=== PATIENT | female | born 1985 | race Caucasian/White ===

== ENCOUNTER 2021-05-30 08:58 | Outpatient (CLI) | payer BC ==
[2021-05-30 18:25] LABS: SARS-CoV-2 PCR by NAA Not Detected (NotDetected)
== END 2021-05-30 08:59 | disposition home or self-care (01) ==
LOC: CSHLAB 08:58
PROVIDERS: ATTEND Obstetrics & Gynecology
DX: Z20.822 Contact with and (suspected) exposure to COVID-19 (principal)
CPT/HCPCS: U0003; U0005

== ENCOUNTER 2021-06-03 14:29 | Inpatient (IN) | payer BC ==
[~2021-06-03 14:29] MED LIST: Bupivacaine 0.25% HCL 30 ML VIAL ONE
[2021-06-03] MEDS ORDERED: Misoprostol 200 MCG TAB PR PRN (20:21)
[2021-06-03] MEDS ORDERED: Acetaminophen 500 MG TAB PO PRN (20:21)
[2021-06-03] MEDS ORDERED: Lidocaine 1% (PF) 30 ML VIAL SC PRN (20:21)
[2021-06-03] MEDS ORDERED: Carboprost 250 MCG/ML AMP IM PRN (20:21)
[2021-06-03] MEDS ORDERED: Diphenoxylate HCl/Atropine Tablet PO PRN ×2 (20:21)
[2021-06-03] MEDS ORDERED: Zolpidem Tartrate 5 MG TAB PO PRN (20:21)
[2021-06-03] MEDS ORDERED: Fentanyl 100 MCG/2 ML VIAL SLOW IVP PRN (20:21)
[2021-06-03] MEDS ORDERED: Ibuprofen 800 MG TAB PO PRN (20:21)
[2021-06-03] MEDS ORDERED: hydrALAZINE 20 MG/ML VIAL SLOW IVP PRN (20:21)
[2021-06-03] MEDS ORDERED: Promethazine HCl 25 MG/ML VIAL IM PRN (20:21)
[2021-06-03] MEDS ORDERED: HYDROcodone/Acetaminophen 5/325 mg Tablet PO PRN (20:21)
[2021-06-03] MEDS ORDERED: Ondansetron PF 4 MG/2 ML Vial IVP PRN (20:21)
[2021-06-03] MEDS ORDERED: Lactated Ringer's 1,000 ML IV SCH (20:30)
[2021-06-03] MEDS ORDERED: NS w/ Oxytocin 30 units 500 ML IV SCH ×2 (20:30)
[2021-06-03 21:00] VITALS: BMI 29.9
[2021-06-03 21:46] LABS: Mean Corpuscular HGB CONC 33.8 g/dL (32.0-36.0); Mean Corpuscular Hemoglobin 30.5 pg (27.0-33.0); Mean Corpuscular Volume 90.3 fl (81.6-98.3); Mean Platelet Volume 10.7 fl (7.4-10.4); Platelet Count 247 10x3/uL (150-450); RBC Distribution Width 15.8 % (11.5-14.5); Red Blood Cell (RBC) Count 3.93 10x6/uL (3.90-5.03); White Blood Cell (WBC) Count 13.3 10x3/uL (3.5-10.5)
[2021-06-03] MEDS: Misoprostol 100 MCG TAB VAG SCH (21:50)
[2021-06-03 22:18] LABS: Hep B Surf Ag Non-Reactive S/CO (NonReactive); Syphilis Antibody Nonreactive (Nonreactive); Syphilis Antibody Index 0.03 S/CO (<1.00 Non-Reactive)
[2021-06-04] MEDS: Misoprostol 100 MCG TAB VAG SCH ×2 (00:54→23:09)
[2021-06-04] MEDS: Butorphanol Tartrate 1 MG/ML VIAL SLOW IVP PRN ×2 (04:32→06:21)
[2021-06-04] MEDS ORDERED: Butorphanol Tartrate 1 MG/ML VIAL ONE (04:34)
[2021-06-04] MEDS ORDERED: diphenhydrAMINE 50 MG/ML VIAL IVP PRN (07:22)
[2021-06-04] MEDS ORDERED: Ondansetron PF 4 MG/2 ML Vial IVP PRN (07:22)
[2021-06-04] MEDS ORDERED: Lactated Ringer's 500 ML IV PRN (07:22)
[2021-06-04] MEDS ORDERED: Hydrocerin (Eucerin) Cream 120 gm Jar TOP PRN (07:22)
[2021-06-04] MEDS ORDERED: Acetaminophen 325 MG TAB PO PRN (07:22)
[2021-06-04] MEDS ORDERED: Fentanyl 2 mcg/Bup 0.1% Cadd 100 ML ONE (07:22)
[2021-06-04] MEDS ORDERED: Naloxone HCl 0.4 mg/ml Vial IVP PRN ×2 (07:22)
[2021-06-04] MEDS ORDERED: ePHEDrine Sulfate 50 MG/10 ML VIAL SLOW IVP PRN (07:22)
[2021-06-04] MEDS ORDERED: Promethazine HCl 25 MG/ML VIAL IM PRN (07:22)
[2021-06-04] MEDS ORDERED: Communication Order-Pharmacy FS SCH (07:30)
[2021-06-04] MEDS: Fentanyl 2 mcg/Bupivacaine 0.1% Cassette 100 ML EPIDURAL SCH ×2 (08:50→15:09)
[2021-06-04] MEDS ORDERED: Bisacodyl 10 MG SUPP PR PRN (18:51)
[2021-06-04] MEDS ORDERED: Milk Of Magnesia 30 ML UDCUP PO PRN (18:51)
[2021-06-04] MEDS ORDERED: Boostrix 0.5 ML (Tdap) VIAL IM ONE (18:51)
[2021-06-04] MEDS ORDERED: diphenhydrAMINE 25 MG CAP PO PRN (18:51)
[2021-06-04] MEDS ORDERED: Lanolin Ointment 7 GM TUBE TOP PRN (18:51)
[2021-06-04] MEDS ORDERED: hydrALAZINE 20 MG/ML VIAL SLOW IVP PRN (18:51)
[2021-06-04] MEDS ORDERED: traMADol HCl 50 MG TAB PO PRN (18:51)
[2021-06-04] MEDS ORDERED: Preparation H Ointment 28 GM TUBE PR PRN (18:51)
[2021-06-04] MEDS ORDERED: Ferrous Sulfate 325 MG TAB PO SCH (20:00)
[2021-06-04] MEDS: Ibuprofen 800 MG TAB PO SCH (21:26)
[2021-06-04] MEDS: Docusate 100 MG CAP PO SCH (21:26)
[2021-06-05] MEDS ORDERED: Benzocaine-Menthol 82.5 ML CAN ONE (05:23)
[2021-06-05] MEDS ORDERED: Benzocaine-Menthol 82.5 ML CAN TOP PRN (06:09)
[2021-06-05] MEDS: Ibuprofen 800 MG TAB PO SCH ×3 (06:09→21:08)
[2021-06-05] MEDS: Ferrous Sulfate 325 MG TAB PO SCH (07:36)
[2021-06-05] MEDS: Docusate 100 MG CAP PO SCH ×2 (09:17→21:08)
[2021-06-06] MEDS: Ibuprofen 800 MG TAB PO SCH (05:58)
[2021-06-06] MEDS: Ferrous Sulfate 325 MG TAB PO SCH (07:46)
[2021-06-06 08:02] VITALS: BP 111/69; TEMP 98.3
[2021-06-06] MEDS: Docusate 100 MG CAP PO SCH (08:41)
== END 2021-06-06 13:10 | disposition home or self-care (01) | DRG 807 ==
LOC: CSHLD 20:05 → CSHPP 06-04 18:30
PROVIDERS: ADMIT Obstetrics & Gynecology; ATTEND Obstetrics & Gynecology
PROC: 10E0XZZ Delivery of Products of Conception, External Approach (ICD-10-PCS; principal; 2021-06-04)
PROC: 0KQM0ZZ Repair Perineum Muscle, Open Approach (ICD-10-PCS; 2021-06-04)
PROC: 3E033VJ Introduction of Other Hormone into Peripheral Vein, Percutaneous Approach (ICD-10-PCS; 2021-06-04)
PROC: 30233S1 Transfusion of Nonautologous Globulin into Peripheral Vein, Percutaneous Approach (ICD-10-PCS; 2021-06-04)
DX: O70.1 Second degree perineal laceration during delivery (principal); Z37.0 Single live birth; Z3A.40 40 weeks gestation of pregnancy
CPT/HCPCS: 36415; 51702; 85027; 85461; 86780; 86850; 86870; 86900; 86901; 87340; 90384; 96372; J0595; J2405; J2590; S0020